=== PATIENT | male | born 1955 | race Caucasian/White ===

== ENCOUNTER → 2016-12-19 | Outpatient (CLI) | payer BC ==
[~2016-12-19] MED LIST: FLEXERIL10 MG PO; MEDROL 4MG. DOSE4 MG PO; PERCOCET 10 MG1 EACH PO; PHENERGAN 25MG.25 M1 PO; SINGULAIR 10 MG10 MG PO; VICODIN 7.5/501 EACH PO; ZOFRAN ODT8 MG PO
[2016-12-19 11:26] LABS: HEMOGLOBIN 16.7 g/dL (14.1-18.0); LYMPH # 1.7 K/mm3 (0.7-4.5)
[2016-12-19 13:13] LABS: BUN 15 mg/dL (7-18); FREE THYROXIN INDEX 8.6 ug/dl (5.93-13.13); PROSTATE-SPECIFIC AG SCREEEN 1.1 ng/mL (0.0-4.0)
[2016-12-19 13:21] LABS: GFR (ESTIMATED) 98 ML/MIN (>60)
[2016-12-22 06:42] LABS: Vitamin D, 25-Hydroxy 25.2 ng/mL (30.0-100.0)
== END ==
LOC: LAB 11:09
PROVIDERS: Internal Medicine Adolescent Medicine
DX: R53.83 Other fatigue (principal); R53.81 Other malaise; R97.20 Elevated prostate specific antigen [PSA]
CPT/HCPCS: G0103